=== PATIENT | female | born 1980 | race Caucasian/White ===

== ENCOUNTER 2021-08-26 13:15 | Emergency (ER) | payer BC ==
[~2021-08-26] VITALS: Ht 170.2 cm; Wt 136.1 kg
[2021-08-26 13:39] VITALS: BP 176/99
[2021-08-26] MEDS ORDERED: ACETAMINOPHEN ES 500 MG TABLET PO ONE (15:30)
[2021-08-26] MEDS ORDERED: ACETAMINOPHEN ES 500 MG TABLET ONE (15:32)
[2021-08-26] MEDS ORDERED: TRAM50TA2 PO (16:23)
[2021-08-26] MEDS ORDERED: METH-647 GT (16:23)
[2021-08-26] MEDS ORDERED: TRAMADOL HCL 50 MG TABLET ONE (16:29)
[2021-08-26] MEDS ORDERED: TRAMADOL HCL 50 MG TABLET PO ONE (16:30)
--- NOTE | 2021-08-26 16:33 | NUR ---
Patient discharged to home in stable condition. Written and verbal after care instructions given. Patient verbalizes understanding of instruction.
== END 2021-08-26 16:33 | disposition home or self-care (01) ==
LOC: ER 13:15
DX: S01.511A Laceration without foreign body of lip, initial encounter (principal); S16.1XXA Strain of muscle, fascia and tendon at neck level, initial encounter; S09.8XXA Other specified injuries of head, initial encounter; Z88.6 Allergy status to analgesic agent; Y08.89XA Assault by other specified means, initial encounter; Y93.89 Activity, other specified; Y92.89 Other specified places as the place of occurrence of the external cause; Y99.8 Other external cause status
CPT/HCPCS: 70450-TC; 70486-TC; 72125-TC